=== PATIENT | female | born 2000 | race Caucasian/White ===

== ENCOUNTER 2024-05-15 16:48 | Outpatient (REF) | payer MEDICAID, SELFPAY ==
[2024-05-15 16:18] LABS: TSH (W/Ref FT4) 1.19 uIU/mL (0.36-3.74)
== END 2024-05-15 16:49 | disposition home or self-care (01) ==
LOC: LBN 16:48
PROVIDERS: Visit Provider Nurse Practitioner Family
DX: E03.9 Hypothyroidism, unspecified (principal)
CPT/HCPCS: 84443